=== PATIENT | female | born 1990 ===

== ENCOUNTER 2016-11-29 15:10 | Emergency (ER) | payer BC, MEDICAID ==
[2016-11-29 15:11] VITALS: BMI 25.2
--- NOTE | 2016-11-29 16:29 | C.PDOC ---
History Of Present Illness 26 y/o female, hx of resting tremors in past, c/o waking at 530 am today and having numbness to left side of her jaw and left half of lower lip; pt sts symptoms resolved after 45 minutes, but returned again multiple times throughout the day as decreased sensation to those 2 areas, 'sort of a burning feeling moving on face, like when numbing medicine is wearing off; pt sts coworkers said she had slurred speech at work when she had this strange sensaiton, but pt denies feeling like there was any change in speech. no headache or dizziness. no recent trauma, no fever or chills, no dental pain. no facial pain or swelling. pt sts she also started having tremors in her hands ( similar to her resting tremors) and felt palpitations, but no chest pain or sob when at work, was feeling anxious about this. pt seen at [facility] who told her to come to ER for evaluation. not on ocp. Time Seen by Provider: 11/29/16 15:32 Chief Complaint (Nursing): Anxiety History Per: Patient History/Exam Limitations: no limitations Onset/Duration Of Symptoms: Days (1) Current Symptoms Are (Timing): Still Present (intermittent) Past Medical History Reviewed: Historical Data, Nursing Documentation, Vital Signs Vital Signs: Last Vital Signs Temp 98.1 F 11/29/16 17:29 Pulse 78 11/29/16 17:29 Resp 17 11/29/16 17:29 BP 92/58 L 11/29/16 17:29 Pulse Ox 99 11/29/16 17:50 - Medical History PMH: Denies: Depression Other PMH: resting tremors Surgical History: No Surg Hx - [facility] Procedures ANESTH INJECT-SPIN CANAL (11/20/13) INJECT/INFUSE NEC (02/03/14) MANUAL ASSIST DELIV NEC (11/20/13) Family History: States: Unknown Family Hx - Social History Hx Tobacco Use: Yes Hx Alcohol Use: No Hx Substance Use: No - Immunization History Hx Tetanus Toxoid Vaccination: No Hx Influenza Vaccination: Yes Hx Pneumococcal Vaccination: No Review Of Systems Constitutional: Negative for: Fever, Chills Eyes: Negative for: Pain, Vision Change ENT: Negative for: Ear Pain, Ear Discharge Cardiovascular: Positive for: Palpitations. Negative for: Chest Pain, Light Headedness Respiratory: Negative for: Cough, Shortness of Breath Gastrointestinal: Negative for: Nausea, Vomiting Musculoskeletal: Positive for: Other (facial sensory changes) Neurological: Positive for: Numbness (dec sensaiton intermittently to left lower lip and jawline). Negative for: Weakness, Confusion, Seizures, Headache, Dizziness Physical Exam - Physical Exam Appears: Non-toxic, No Acute Distress (talking on phone, appears comfortable) Skin: Warm, Dry Head: Atraumatic, Normacephalic, No Tenderness Eye(s): bilateral: Normal Inspection, PERRL, EOMI Ear(s): Bilateral: Normal Nose: Normal Oral Mucosa: Moist Tongue: Normal Appearing Lips: Normal Appearing, Other (decreased sensatin along left lower lip, no swelling, tenderness, redness or warmth noted) Teeth: Normal Dentition Gingiva: Normal Appearing Throat: Normal Neck: Normal ROM Chest: Symmetrical, No Deformity, No Tenderness Cardiovascular: Rhythm Regular (100), No Murmur Respiratory: Normal Breath Sounds, No Stridor, No Wheezing Gastrointestinal/Abdominal: Soft, No Tenderness Extremity: Normal ROM, No Tenderness Extremity: Bilateral: Other (fine tremor in hands, right more than left) Pulses: Left Radial: Normal, Right Radial: Normal Neurological/Psych: Oriented x3, Normal Speech (no sluuring), Normal Cognition, Normal Cranial Nerves (decreased sensation along left jaw and lower lip), Normal Motor, Other (roman intact, finger nose normal, gait steady) ED Course And Treatment O2 Sat by Pulse Oximetry: 99 (room air) Pulse Ox Interpretation: Normal - CT Scan/US CT head Other Rad Studies (CT/US): Read By Radiologist, Radiology Report Reviewed CT/US Interpretation: PROCEDURE: CT HEAD WITHOUT CONTRAST. HISTORY: left lip and mandible numbness. COMPARISON: None available. TECHNIQUE: Axial computed tomography images were obtained through the head/brain without intravenous contrast. Radiation dose: Total exam DLP = 779.62 mGy-cm. This CT exam was performed using one or more of the following dose reduction techniques: Automated exposure control, adjustment of the mA and/or kV according to patient size, and/or use of iterative reconstruction technique. FINDINGS: HEMORRHAGE: No intracranial hemorrhage. BRAIN: [place]-white matter differentiation is preserved. There is no mass, mass effect or abnormal extra- axial fluid collection. VENTRICLES: The ventricles are normal in size, shape and configuration. CALVARIUM: There is no calvarial fracture or extracranial soft tissue swelling. PARANASAL SINUSES: Predominantly clear. MASTOID AIR CELLS: Predominantly clear. OTHER FINDINGS: None. IMPRESSION: No acute intracranial abnormality. Medical Decision Making Medical Decision Makin26 y/o female with intermittent dec sesation to left lip and mandible- upreg and head ct. 545 pm pt feeling better, palpitations and tremors markedly reduced; still with intermittent sensation to lip. Disposition Counseled Patient/Family Regarding: Diagnosis, Need For Followup - Disposition Disposition: HOME/ ROUTINE Disposition Time: 17:48 Condition: STABLE Additional Instructions: Follow up with your neurologist as soon as possible. Return to ER for any increasing or worsening symptoms; weakness or numbness or any other concerning symptoms. Instructions: Paresthesia (ED) Forms: General Discharge Instructions, Work Excuse - Clinical Impression Clinical Impression: Facial paresthesia
--- NOTE | 2016-11-29 17:28 | CT ---
PROCEDURE: CT HEAD WITHOUT CONTRAST. HISTORY: left lip and mandible numbness COMPARISON: None available. TECHNIQUE: Axial computed tomography images were obtained through the head/brain without intravenous contrast. Radiation dose: Total exam DLP = 779.62 mGy-cm. This CT exam was performed using one or more of the following dose reduction techniques: Automated exposure control, adjustment of the mA and/or kV according to patient size, and/or use of iterative reconstruction technique. FINDINGS: HEMORRHAGE: No intracranial hemorrhage. BRAIN: [place]-white matter differentiation is preserved. There is no mass, mass effect or abnormal extra-axial fluid collection. VENTRICLES: The ventricles are normal in size, shape and configuration. CALVARIUM: There is no calvarial fracture or extracranial soft tissue swelling. PARANASAL SINUSES: Predominantly clear. MASTOID AIR CELLS: Predominantly clear. OTHER FINDINGS: None. IMPRESSION: No acute intracranial abnormality.
[2016-11-29 17:31] VITALS: BP 92/58; PULSE 78; RESP 17; TEMP 98.1
[2016-11-29 17:36] VITALS: O2SAT 99
== END 2016-11-29 17:54 | disposition home or self-care (01) ==
LOC: C.ER 15:10
DX: R20.9 Unspecified disturbances of skin sensation (principal)